=== PATIENT | female | born 1945 | race Caucasian/White ===

== ENCOUNTER → 2021-02-16 | Outpatient (CLI) | payer SELFPAY ==
[2020-07-24 11:10] VITALS: BMI 27.5
[2021-02-16 10:06] LABS: International Normalized Ratio 1.7; Prothrombin Time (Protime)PT. 19.6 SECONDS (11.7-14.9)
== END | disposition home or self-care (01) ==
LOC: LABSPEC 09:48
PROVIDERS: PCP Student in an Organized Health Care Education/Training Program; Referring Provider Student in an Organized Health Care Education/Training Program; Visit Provider Student in an Organized Health Care Education/Training Program
DX: I48.20 Chronic atrial fibrillation, unspecified (principal)
CPT/HCPCS: 85610

== ENCOUNTER 2023-05-22 11:00 | Outpatient (RCR) | payer MEDICARE, MEDICAID, SELFPAY ==
--- NOTE | 2023-01-17 11:56 | HP.PTREVAL ---
Dr. Ross Burns, DO, It has been my pleasure to treat FERN RODRIGUEZ over the last 11 visits for Bilateral Hip and Back Pains. Please see the progress note below for an update on the physical therapy plan of care! Subjective: Patient loves the pool- she feels that she is getting stronger- she is improving on land with her strength, mobility, balance. She is now using a cane most of the time now. No falls- couple stumbles but was able to catch herself. Her movement at home is much better she is not sitting as much and she more comfortable while she is sitting- she has working on stretching herself out- she got herself flat on the chiropractic table and he was able to do some different adjustments that he couldn't do before. Her pain has also decreased now its more soreness not pain. Objective/Function: Posture: improved- able to be upright with straight cane. Gait: straight cane- 150 feet- slightly wide ANA LILIA. Transfers: supine to sit indep- can lay flat without assistance- sit to stand requires bilateral UE and min A for single UE. ROM: WFL. Strength: Core: fair, Hip: Left: 4/5, Right: 4+/5, Knee: 4+/5, Ankle: 4+/5. Flex: HS: severe, Gastroc: severe Plan Plan: 01/17/23: Cont 3x a week for 4 weeks in the pool as pt is making great progress. *follow up with response to this visit. 12/24/22: Transition to pool for 2x a week for 4 weeks- LE and UE strength with core stabilization- functional mobility Balance/Gait/Functional tests - Balance/Special Test Scores Lower Extremity Functional Score: 12 Tug Test: <20 sec.=mostly independent Goals Goal 1:: Patient will be I with HEP and progression Goal Time Frame: 4-6 Weeks Goal Progress: Progressing Goal 2:: Patient will ambulate >300 feet with cane or no AD Goal Time Frame: 4-6 Weeks Goal Progress: Progressing Goal 3:: Patient will demo ability to transfer from supine to sit and sit to supine without A Goal Time Frame: 4-6 Weeks Goal Progress: Goal Met Goal 4:: Patient will report 80% improvement Goal Time Frame: 4-6 Weeks Goal Progress: Progressing Anticipated Interventions Patient/Client Instruction: Educate patient on: Benefits of Fitness Program Therapeutic Exercise to Include: Strength training, Endurance training, Balance training, Coordination, Agility training, Body mechanics, Postural training, Flexibilty training, Gait and locomotor training, In an aquatic setting, Dynamic Lumbar Stabilization, Scapular Strength/Stabilization For the Purpose of:: To improve muscle performance and motor function TENS: Yes Cryotherapy (ice pack, ice massage): Yes Thermo therapy (hot pack): Yes Please do not hesitate to contact me at [phone] by phone or if you have questions or concerns regarding this new plan of care! Sincerely, Maame Pagan DPT
--- NOTE | 2023-02-14 13:38 | HP.PTREVAL ---
Dr. Ross Burns, DO, It has been my pleasure to treat FERN RODRIGUEZ over the last 22 visits for Bilateral Hip and Back Pains. Please see the progress note below for an update on the physical therapy plan of care! Subjective: Doing better. Making progress. I can do things i could not do before like sitting better an progressed to cane instead of walker. No falls and feels OK with balance with cane. Tires out easily, endurance is still limited. Does her laundry and dishes. Hobbies include video games. No pain anymore, some discomfort at times. Objective/Function: Walking with very poor confidence today and hesitant but able with without AD. Walks with cane safe adn I. Steps with two rails reciprocally hesitantly but able strength purdy, [id number] FW weight shift. Pt is [id number] to get in pool as is dtr but admittedly they could do pool ex on their own and she will likely benefit more from gait training and strengthening on land for confidence. New POC adn fair prognosis with compliance Plan Plan: 2x/week for gait /balance training, work on walking without AD, challenge weight shift, steps, LE strength to HEP and ensure patient [id number] in pool with dtr in community. Balance/Gait/Functional tests - Balance/Special Test Scores Functional Gait Assessment Score: 18 % Disability: 40.0000 Lower Extremity Functional Score: 33 Tug Test: <20 sec.=mostly independent Goals Goal 1:: Patient will be I with HEP and progression Goal Time Frame: 4-6 Weeks Goal Progress: pool met Goal 2:: Patient will ambulate >300 feet with cane or no AD Goal Time Frame: 4-6 Weeks Goal Progress: cane met Goal 3:: Patient will demo ability to transfer from supine to sit and sit to supine without A Goal Time Frame: 4-6 Weeks Goal Progress: Goal Met Goal 4:: Patient will report 80% improvement Goal Time Frame: 4-6 Weeks Goal Progress: 60% Goal 5:: Walk without AD and climb steps confidently 30 feet I on firm flat surface Goal Time Frame: 4-6 Weeks Goal Progress: NEW GOAL Goal 6:: FGA score Goal Time Frame: 4-6 Weeks Goal Progress: NEW GOAL Anticipated Interventions Patient/Client Instruction: Educate patient on: Benefits of Fitness Program Therapeutic Exercise to Include: Strength training, Endurance training, Balance training, Coordination, Agility training, Body mechanics, Postural training, Flexibilty training, Gait and locomotor training, In an aquatic setting, Dynamic Lumbar Stabilization, Scapular Strength/Stabilization For the Purpose of:: To improve muscle performance and motor function TENS: Yes Cryotherapy (ice pack, ice massage): Yes Thermo therapy (hot pack): Yes Please do not hesitate to contact me at [phone] by phone or if you have questions or concerns regarding this new plan of care! Sincerely, Moy Omalley, DPT, OCS, CSCS
--- NOTE | 2023-03-25 11:45 | HP.PTREVAL ---
Dr. Ross Burns, DO, It has been my pleasure to treat FERN RODRIGUEZ over the last 31 visits for Bilateral Hip and Back Pains. Please see the progress note below for an update on the physical therapy plan of care! Subjective: adhesion in L hip broken up by chiropractor yesterday adn is sore. Overall has not been in the water but is still improving with her exercises. Sleeping better. Soreness in hip is 5/10 vs 9/10 prior. Pain much better. HEP: LAQ, standing moving hip at counter, sit to stand and stretching front of hip on side of bed. Objective/Function: Moving L hip and walking much easier without antalgia today, up and down steps reciprocally easily and without pain. FGA is +4 and improving. Avoids FW weight shift exitting chair until cued adn then is very tight anterior hips limiting FW flexion. Plan Plan: 2x/week x 4 weeks for. 1. Please get on final HEp for posture and LE strength including FW weight shift in chair, balance, sink exercises with pics, This is the main goal. 2. Wrok on Fw weight shift to get chest over feet in exitting chair. 3. Wrok on lots of gait with challenges to help confidence with balance. Work to d/c in 4 weeks to final HEP. not realistic for patinet to get in pool assisted. New goals set in #2 below and fair prognosis with complince. Balance/Gait/Functional tests - Balance/Special Test Scores Functional Gait Assessment Score: 22 % Disability: 26.6700 Lower Extremity Functional Score: 21 Tug Test: <20 sec.=mostly independent Goals Goal 1:: Patient will be I with HEP and progression Goal Time Frame: 4-6 Weeks Goal Progress: workin g on land HEP Goal 2:: FGA. out of chair Fw weight shifting appropriately. I aggressive home strength adn balance ex with pics. Goal Time Frame: 4-6 Weeks Goal Progress: NEW GOAL Goal 3:: Patient will demo ability to transfer from supine to sit and sit to supine without A Goal Time Frame: 4-6 Weeks Goal Progress: Goal Met Goal 4:: Patient will report 80% improvement Goal Time Frame: 4-6 Weeks Goal Progress: 60% Goal 5:: Walk without AD and climb steps confidently 30 feet I on firm flat surface Goal Time Frame: 4-6 Weeks Goal Progress: Progressing Goal 6:: FGA score Goal Time Frame: 4-6 Weeks Goal Progress: Goal Met Anticipated Interventions Patient/Client Instruction: Educate patient on: Benefits of Fitness Program Therapeutic Exercise to Include: Strength training, Endurance training, Balance training, Coordination, Agility training, Body mechanics, Postural training, Flexibilty training, Gait and locomotor training, In an aquatic setting, Dynamic Lumbar Stabilization, Scapular Strength/Stabilization For the Purpose of:: To improve muscle performance and motor function TENS: Yes Cryotherapy (ice pack, ice massage): Yes Thermo therapy (hot pack): Yes Please do not hesitate to contact me at [phone] by phone or if you have questions or concerns regarding this new plan of care! Sincerely, Moy Omalley, DPT, OCS, CSCS
--- NOTE | 2023-04-24 12:34 | HP.PTREVAL ---
Re-Evaluation Intro: Dr. Ross Burns, DO, It has been my pleasure to treat FERN RODRIGUEZ over the last 37 visits for Bilateral Hip and Back Pains. Please see the progress note below for an update on the physical therapy plan of care! Subjective Subjective: Not sure if she is better than a month ago. Vitamins and supplements this morning helped. Pain level is up and down , tummy hurts and may have passed a gall stone. Hip pain is better, tightness persists anterior hips. Says she is stretching at home but not able to do anterior hip stretche son her own. Doing some ex at home regularly. Says she does a little leg movements sometimes of legs. Objective Objective/Function: Walks with cane without antalgia today comfortably, steps reciprocal with one rail up and two down. needs assist to get out of chair without UE and VC to use legs and FW weight shift. FGA is similar to last session , recommended 100% compliance with cane. Plan Plan Plan: Pt to ex on her own in the pool as a member 2-3x/week and HEP on off days of sink exercises. Questionable if she will be compliant based on recent history but will f/u in a month to see of mobility still improved. Balance/Gait/Functional tests Balance/Special Test Scores Functional Gait Assessment Score: 20 % Disability: 33.3400 Lower Extremity Functional Score: 24 Tug Test: <20 sec.=mostly independent Goals Goals Goal 1:: Patient will be I with HEP and progression Goal Time Frame: 4-6 Weeks Goal Progress: noncompliant. Goal 2:: FGA out of chair Fw weight shifting appropriately I aggressive home strength adn balance ex with pics. Goal Time Frame: 4-6 Weeks Goal Progress: Not Progressing Goal 3:: Consistent pool ex community 3x/week to maintain improvements in mobility incuding FGA, steps reciprocal with one rail and 60% overall mobility improvement subjectively Goal Time Frame: 2-4 Weeks Goal Progress: NEW GOAL Goal 4:: Patient will report 80% improvement Goal Time Frame: 4-6 Weeks Goal Progress: 50% Goal 5:: Walk without AD and climb steps confidently 30 feet I on firm flat surface Goal Time Frame: 4-6 Weeks Goal Progress: Not Progressing Goal 6:: FGA score Goal Time Frame: 4-6 Weeks Goal Progress: Goal Met Anticipated Interventions Anticipated Interventions Patient/Client Instruction: Educate patient on: Benefits of Fitness Program Therapeutic Exercise to Include: Strength training, Endurance training, Balance training, Coordination, Agility training, Body mechanics, Postural training, Flexibilty training, Gait and locomotor training, In an aquatic setting, Dynamic Lumbar Stabilization and Scapular Strength/Stabilization For the Purpose of:: To improve muscle performance and motor function TENS: Yes Cryotherapy (ice pack, ice massage): Yes Thermo therapy (hot pack): Yes Re-Evaluation Ending Re-evaluation ending: Please do not hesitate to contact me at [phone] by phone or if you have questions or concerns regarding this new plan of care! Sincerely, Moy Omalley, KENAT, OCS, CSCS
--- NOTE | 2023-05-22 11:44 | HP.PTDCSUM ---
Discharge Summary D/C summary: It has been my pleasure to treat FERN RODRIGUEZ referred by Dr. Ross Burns DO, with the diagnosis of Bilateral Hip and Back Pains for a total of 38 visit(s). Discharge Date: Please see the following information for a summary of their discharge status. Subjective Subjective: She is going to the pool at least 2x a week and she is doing great- and she is walking using the cane all the time. She has had no falls, trips or stumbles. She is fully I with all dressing, driving and bathing. She has no questions or concerns with her exercises. She is sleeping in her bed and is able to get fully flat. She feels that she is 70% better- she wants to be able to walk without a cane. She has a little belly pain today not sure if diet or muscle soreness (10). Pain Back: Pain Intensity (Out of 10): 0 Legs: Pain Intensity (Out of 10): 0 Overall Improvement % Improvement: 70 Objective Objective/Function: Posture: good throughout session Gait: single point cane- upright posture no deviation or loss of balance Strength: 4+/5 throughout LE HR/TR: able with UE A FGA is similar to last session , recommended 100% compliance with cane. Goals Goal 1:: Patient will be I with HEP and progression Goal Progress: noncompliant. Goal 2:: FGA out of chair Fw weight shifting appropriately I aggressive home strength adn balance ex with pics. Goal Progress: Not Progressing Goal 3:: Consistent pool ex community 3x/week to maintain improvements in mobility incuding FGA, steps reciprocal with one rail and 60% overall mobility improvement subjectively Goal Progress: NEW GOAL Goal 4:: Patient will report 80% improvement Goal Progress: 50% Goal 5:: Walk without AD and climb steps confidently 30 feet I on firm flat surface Goal Progress: Not Progressing Goal 6:: FGA score Goal Progress: Goal Met Plan Plan: 05/22/23: Appropriate for d/c- continues to excel in the pool with HEP Pt to ex on her own in the pool as a member 2-3x/week and HEP on off days of sink exercises. Questionable if she will be compliant based on recent history but will f/u in a month to see of mobility still improved. D/C Information d/c sentence: If there are questions or concerns regarding this patient's physical therapy, please feel free to call me at [phone]. Thank you for the referral of this patient. Sincerely, Maame Pagan, DPT Balance/Gait/Functional tests Balance/Special Test Scores Functional Gait Assessment Score: 20 % Disability: 33.3400 Lower Extremity Functional Score: 24 Tug Test: <20 sec.=mostly independent
== END 2023-05-22 13:14 | disposition home or self-care (01) ==
LOC: PT 11:00
PROVIDERS: PCP Student in an Organized Health Care Education/Training Program; Referring Provider Student in an Organized Health Care Education/Training Program; Visit Provider Student in an Organized Health Care Education/Training Program
DX: M25.551 Pain in right hip (principal); M25.552 Pain in left hip; M79.10 Myalgia, unspecified site; M54.50 Low back pain, unspecified; G89.29 Other chronic pain
CPT/HCPCS: 97110; 97113; 97163; 97164; 97530

== ENCOUNTER 2024-03-17 18:59 | Emergency (ER) | payer MEDICARE, MEDICAID, SELFPAY ==
[2024-03-17 19:00] VITALS: BP 145/79; PULSE 87; RESP 18; TEMP 36.7; O2SAT 99
--- NOTE | 2024-03-17 19:18 | CT_ITS ---
INDICATION: left neck swelling/mass EXAMINATION: CT NECK WITH CONTRAST - CT Soft Tissue Neck W/ Contrast Injection TECHNIQUE: Helically acquired images were obtained of the neck following IV contrast. The protocol utilizes one or more of the following dose reduction techniques: automated exposure control, adjustment of mA and/or kV according to patient size,and/or use of iterative reconstruction technique. IV Contrast dosage and agent: [The urinary RADIATION DOSAGE (If Supplied By Facility): CTDIvol = ( 14.17 ) mGy, DLP = ( 920.05 ) mGycm COMPARISON: FINDINGS: Aortic arch atherosclerosis without dissection or ectasia on limited study [id number]. Pericardial recess fluid noted. Dilatation of the distal left brachiocephalic vein noted just prior to the SVC junction. Mild cervical carotid bifurcation and cavernous carotid atherosclerosis. No evidence of cervical vascular occlusion or focal flow-limiting stenosis. Left parotid gland enlargement and diffuse inferior hyperenhancement without ductal ectasia or discrete mass. Slight relative thickening of the left platysma.. Reactive left cervical level 2A lymph nodes without suspicious morphology or necrosis. Submandibular glands are normal in appearance. Right parotid gland is normal in appearance. The pharyngeal tonsils are symmetric and normal in appearance. Parapharyngeal fat is preserved. No abnormal enhancing base of tongue mass is appreciated. Beam hardening artifact from dental hardware degrades visualization of the floor of the mouth. Normal epiglottis. No prevertebral soft tissue thickening. Subcentimeter anterior thyroid nodules are suggested, likely benign given small size, no specific imaging follow-up required. Scattered mild paranasal sinus mucoperiosteal thickening. Mastoid air cells are clear. Unremarkable orbits. Multiple small right maxillary alveolar root odontogenic abscesses without overlying soft tissue inflammation. CT/Soft Tissue Neck WITH Contrast IMPRESSION: Focal inflammation in the left inferior parotid gland most consistent with parotitis. CT follow-up recommended after treatment to ensure resolution. Mild reactive left cervical adenopathy. Electronically Signed: Troy Richardson MD at 22:38 EDT ,
--- NOTE | 2024-03-17 19:19 | EX.ED.DYSGE1 ---
HPI History of Present Illness Chief Complaint: Other, Pain/Inj Detail of Chief Complaint: Left neck swelling Informant: patient Narrative Narrative: Patient presents with left-sided neck swelling that started 3 days ago. Patient on hospice for history of CHF. Hospice called in an antibiotic amoxicillin yesterday which she started taking. She denies fever. She has had some chills and some sweats. She chronically has dental pain but no more than usual. She and her daughter were concerned that this might be an abscess. Patient has history of A-fib but currently not on anticoagulation. [facility] Medical History (Updated 03/17/24 @ 23:[address] Elliott Brown, DO) History of cardioversion Mitral regurgitation Hyperlipidemia Esophagitis Panic disorder Palpitations Acute combined systolic and diastolic congestive heart failure Chronic atrial fibrillation Home Medications ?Medication ?Instructions ?Recorded ?Last Taken ?Type Atenolol 12.5 mg PO DAILY 07/10/16 07/09/16 History warfarin 3 mg tablet (Jantoven) 3 mg PO DAILY 07/10/16 07/09/16 23:00 History magnesium oxide 400 mg (241.3 mg 400 mg PO DAILY ##30 07/11/16 Unknown Rx magnesium) tablet meclizine 25 mg tablet 25 mg PO TID PRN PRN Vertigo ##10 07/11/16 Unknown Rx nicotine 21 mg/24 hr daily 21 mg TRANSDERM. DAILY PRN 07/11/16 Unknown Rx transdermal patch Nicotine Craving ##28 amoxicillin 400 mg-potassium 10 ml PO BID 10 days #200 mL 03/17/24 Unknown Rx clavulanate 57 mg/5 mL oral suspension Allergy/AdvReac Type Severity Reaction Status Date / Time paroxetine (From Paxil) Allergy hallucinati Verified 03/17/24 19:02 ons diltiazem AdvReac Swelling Verified 03/17/24 19:02 Family History (Updated 12/30/23 @ 08:58 by Brenda Romero RN) Mother Thyroid disorder Seizures Father CAD (coronary artery disease) Myocardial infarction Brother CAD (coronary artery disease) Myocardial infarction Sister CAD (coronary artery disease) Myocardial infarction Surgical History (Updated 12/30/23 @ 08:55 by Brenda Romero RN) History of colonoscopy Social History Smoking Status: Heavy Smoker (>10/day) ROS ROS ED Review of Systems ROS Unobtainable: other Constitutional Constitutional ED: Reports lethargy; Denies chills, fever(s), sweats or weight loss Eyes Eyes: Denies blurry vision, change in vision or diplopia ENT ENT ED: Reports other Details: Left neck swelling ; Denies rhinorrhea or sore throat Cardiovascular Cardiovascular: Denies chest pain, orthopnea or racing heartbeat Respiratory/Chest Respiratory/Chest: Denies cough, dyspnea, dyspnea on exertion, orthopnea or sputum Gastrointestinal Gastrointestinal: Denies abdominal pain, diarrhea, nausea or vomiting Genitourinary Genitourinary ED: Denies dysuria, hematuria or urinary frequency Musculoskeletal Musculoskeletal: Denies arthralgias, back pain, myalgias or neck pain Integumentary Denies abscess, Abrasions or rash Neurologic Neurologic: Denies headache(s) or weakness Psychiatric Psychiatric: Denies anxiety, depression or suicidal thoughts Endocrine Endocrinology: Denies polydipsia, polyphagia or polyuria Hematologic/Lymphatic Hematologic/Lymphatic: Denies easy bleeding, easy bruising or lymphadenopathy Allergic/Immunologic Allergic/Immunologic ED: Denies mouth swelling, tongue swelling or urticaria EXAM Physical Exam Const Vital Signs: 03/17/24 19:00 03/17/24 19:49 03/17/24 21:00 Temperature 98.1 F Temperature Source Temporal Pulse Rate 87 78 Respiratory Rate 18 18 Respiratory Pattern Normal Blood Pressure 145/79 H 161/86 H Blood Pressure Mean 101 111 Pulse Ox 99 95 Oxygen Delivery Method Room Air Room Air Positive well nourished and well developed General Appearance ED: well developed and NAD HEENT Reports TM's clear and moist mucous membranes HEENT Narrative: Left-sided neck-just inferior and posterior to the mandible is a soft tissue swelling measuring approximately 5 x 3 cm. Tender to palpation. No cellulitic changes noted. normocephalic and atraumatic; Negative for trauma or tenderness Tympanic Membrane ED: Yes TM's clear Eyes PERRL and EOMs intact bilaterally General Eye ED: Negative for pale conjunctiva or scleral icterus Neck no lymphadenopathy, supple and no JVD General: Negative for tenderness Chest Wall inspection of chest normal and palpation of chest normal Chest: Negative for tenderness Resp normal respiratory effort and clear to auscultation bilaterally Effort and Inspection: Negative for respiratory distress or pain with movement Auscultation: Negative for rhonchi, wheezes or diminished lung sounds Cardio regular rate, regular rhythm, S1 normal heart sound, S2 normal heart sound and no murmurs Peripheral Pulses: pulses 2+ throughout GI normal to inspection, nondistended, normoactive bowel sounds, soft to palpation, non-tender, non-distended and no masses Back/Spine no CVA tenderness and no thoracic nor lumbar tenderness Extremity normal to inspection General Extremety ED: Negative for edema General Extremity: Negative for edema Neuro oriented x3, CN's II-XII intact bilaterally, no sensory deficits noted and gait normal Sensorium / Orientation: awake, alert, oriented to person, oriented to place and oriented to time Motor Exam: strength 5/5 throughout and strength abnormal Psych mental status grossly normal Skin no rashes or lesions noted and no wounds MDM MDM MDM Narrative Medical decision making narrative: Patient with a painful swelling over the left lateral neck which I suspect is likely parotitis. IV line established. CBC with differential count of 7.0 with hemoglobin 13 and platelet count of 285. Chemistries unremarkable. CT scan showed parotitis without evidence of abscess. Discussed case with ENT Dr. Benito Reno who recommended switching patient to Augmentin or clindamycin. Patient would prefer to go with the Augmentin and she needs suspension because she has trouble swallowing pills. Clinically she looks well. Advised to follow-up with ENT within the next 3 to 5 days. Lab Data Attestation: I reviewed the patient's lab results. Labs: Laboratory Results - last 24 hr 03/17/24 19:33 WBC 7.0 RBC 4.41 Hgb 13.2 Hct 41.4 MCV 93.9 MCH 29.9 MCHC 31.9 L RDW Std Deviation 44.3 H RDW Coeff of Amador 12.9 Plt Count 285 MPV 9.2 Immature Gran % (Auto) 0.300 Neut % (Auto) 55.4 Lymph % (Auto) 34.2 [place] % (Auto) 7.7 Eos % (Auto) 1.3 Baso % (Auto) 1.1 H Absolute Neuts (auto) 3.9 Absolute Lymphs (auto) 2.40 Nucleated RBC % 0 Sodium 138 Potassium 3.3 L Chloride 105 Carbon Dioxide 28.0 Anion Gap 5 BUN 16 Creatinine 0.95 Estim Creat Clear Calc 56.74 Est GFR (MDRD) Af Amer 73 Est GFR (MDRD) Non-Af 61 BUN/Creatinine Ratio 16.8 Glucose 92 Calcium 9.0 Radiography Diagnostic Testing: Clinical Impression(s) from Imaging Studies Soft Tissue Neck CT 03/17/24 19:18 IMPRESSION: Focal inflammation in the left inferior parotid gland most consistent with parotitis. CT follow-up recommended after treatment to ensure resolution. Mild reactive left cervical adenopathy. Electronically Signed: Troy Richardson MD at 22:38 EDT , Discharge Plan Triage Chief Complaint: Other, Pain/Inj ED Provider: Elliott Brown Dx/Rx/DC Orders Clinical Impression: Acute parotitis Instructions: ED Salivary Gland Infection Prescriptions: New amoxicillin-pot clavulanate 400-57 mg/5 mL suspension for reconstitution 10 ml PO BID 10 Days Qty: 200 0RF No Action Atenolol 12.5 mg PO DAILY Patient Comments: Blood pressure Heart rate control warfarin [Jantoven] 3 MG tablet 3 mg PO DAILY Patient Comments: Blood thinner meclizine 25 MG tablet 25 mg PO TID PRN PRN (Reason: Vertigo) Qty: 10 0RF Patient Comments: dizziness Rx Instructions: 1/2 - 1 tab every 6 hours as needed for vertigo nicotine 21 MG patch 21 mg TRANSDERM. DAILY PRN (Reason: Nicotine Craving) Qty: 28 0RF Patient Comments: to stop smoking magnesium oxide 400 MG tablet 400 mg PO DAILY Qty: 30 0RF Patient Comments: supplement Primary Care Provider: Ross Burns Referrals: Ross Burns DO [Primary Care Provider] - Benito Reno MD [Med Staff - Active Staff] - 3-5 Days Print Language: Mauritian Disposition Disposition: Home, Self Care
[2024-03-17 19:43] LABS: Absolute Neutrophil Count 3.9 X10^3/uL (2.0-7.7); Basophil# 0.08 X10^3/uL; Basophil% 1.1 % (0-1); Eosinophil# 0.09 X10^3/uL; Eosinophils% 1.3 % (0-5); Hematocrit 41.4 % (37-47); Hemoglobin 13.2 g/dL (12.0-15.0); Lymphocyte % 34.2 % (19-41); Mean Corp Hgb Conc 31.9 g/dL (32-36); Mean Corpuscular Hgb 29.9 pg (27.0-32.0); Mean Corpuscular Volume 93.9 fL (81-99); Mean Platelet Vol. 9.2 fl (6.2-12.0); Monocyte# 0.54 X10^3/uL; Monocyte% 7.7 % (0-10); NRBC Flagged by Analyzer 0 % (0-5); Neutrophil # 3.89 X10^3/uL (2.7-7.7); Neutrophil % 55.4 % (47-70); Platelet Count 285 K/mm3 (150-450); RBC Distribution Width CV 12.9 % (11.6-14.6); RBC Distribution Width SD 44.3 fl (35.1-43.9); Red Blood Count 4.41 M/mm3 (4.2-5.4)
[2024-03-17 19:48] VITALS: BMI 26.6
[2024-03-17 20:09] LABS: Anion Gap 5 (5-15); BUN 16 mg/dL (7-18); BUN/Creat Ratio 16.8 RATIO (10-20); Chloride 105 mmol/L (98-107); Creatinine, Serum 0.95 mg/dL (0.55-1.02); EST Glomerular Filtration Rate 61 mL/min (>60); Est Glom Filt Rate - Afr Amer 73 mL/min (>60); Estimated Creatinine Clearance 56.74 ml/min; Glucose 92 mg/dL (74-106); Potassium 3.3 mmol/L (3.5-5.1); Sodium Level 138 mmol/L (136-145)
[2024-03-17 21:00] VITALS: BP 161/86; PULSE 78; RESP 18; O2SAT 95
[2024-03-17] MEDS: Amox/Clav 400mg/5ml Susp 800 MG PO (23:30)
[2024-03-17 23:36] VITALS: BP 161/86; PULSE 78; RESP 18; TEMP 36.4; O2SAT 95
== END 2024-03-17 23:43 | disposition home or self-care (01) ==
PROVIDERS: Emergency Provider Emergency Medicine; PCP Student in an Organized Health Care Education/Training Program; Visit Provider Emergency Medicine
DX: K11.21 Acute sialoadenitis (principal); I50.41 Acute combined systolic (congestive) and diastolic (congestive) heart failure; I48.20 Chronic atrial fibrillation, unspecified; F17.200 Nicotine dependence, unspecified, uncomplicated; Z51.5 Encounter for palliative care; K08.89 Other specified disorders of teeth and supporting structures; E78.5 Hyperlipidemia, unspecified
CPT/HCPCS: 70491; 80048; 85025; 99283; Q9967; A4216

== ENCOUNTER 2025-01-15 02:40 | Emergency (ER) | payer MEDICARE, MEDICAID, SELFPAY ==
[2025-01-15 02:41] VITALS: BP 164/77; PULSE 65; TEMP 36.8; O2SAT 93; BMI 31.6
[2025-01-15 02:45] VITALS: BP 157/82; PULSE 100; RESP 22; TEMP 36.8; O2SAT 90
--- NOTE | 2025-01-15 03:07 | CT_ITS ---
EXAM: ABDOMEN/PELVIS W IV CONT ONLY 01/15/2025 CLINICAL HISTORY: Right upper quadrant pain COMPARISON: None available TECHNIQUE: CT of the abdomen and pelvis with contrast with coronal and sagittal reformatted images. 99 cc Isovue 370 contrast intravenous FINDINGS: Mild dependent right base atelectasis. A few small hepatic cysts. The liver, adrenal glands, kidneys, pancreas and spleen appear within limits. Two partially calcified gallstones measuring up to 1.7 cm within nondistended, noninflamed appearing gallbladder. No pericholecystic free fluid. CBD appears within limits. No evidence of intrahepatic biliary ductal dilation. Aortoiliac atherosclerotic calcifications without abdominal aortic aneurysm. No adenopathy. Gaseous prominence of the proximal colon without volvulus, wall thickening or pericolonic inflammatory change. No bowel dilation or free air. Normal caliber appendix without secondary signs. A few noninflamed colonic diverticula. The bladder and adnexa appear within limits. Suggestion of a left partially pedunculated fundal uterine fibroid axial 88 and sagittal 93. No free fluid. Severe left and [id number] right hip osteoarthrosis. Lower lumbar spondylosis/discogenic change. CT/Abdomen/Pelvis W IV Cont ONLY IMPRESSION: Cholelithiasis without evidence of cholecystitis. Gaseous prominence of the proximal colon without volvulus, wall thickening or p ericolonic inflammatory change. No bowel dilation or free air. Normal caliber appendix without secondary signs. Severe hip osteoarthrosis as above. Reading Location: [id number]
[2025-01-15 03:24] LABS: Absolute Lymphocyte Count 1.12 X10^3/uL (0.83-4.51); Absolute Neutrophil Count 10.6 X10^3/uL (2.0-7.7); Basophil# 0.05 X10^3/uL; Basophil% 0.4 % (0-1); Eosinophil# 0.05 X10^3/uL; Eosinophils% 0.4 % (0-5); Hemoglobin 12.1 g/dL (12.0-15.0); Lymphocyte # 1.12 X10^3/ul (0.83-4.51); Lymphocyte % 8.8 % (19-41); Mean Corp Hgb Conc 34.6 g/dL (32-36); Mean Corpuscular Hgb 31.5 pg (27.0-32.0); Mean Corpuscular Volume 91.1 fL (81-99); Mean Platelet Vol. 9.5 fl (6.2-12.0); Monocyte# 0.89 X10^3/uL; NRBC Flagged by Analyzer 0 % (0-5); Neutrophil # 10.57 X10^3/uL (2.7-7.7); Platelet Count 302 K/mm3 (150-450); RBC Distribution Width CV 12.9 % (11.6-14.6); RBC Distribution Width SD 42.5 fl (35.1-43.9); Red Blood Count 3.84 M/mm3 (4.2-5.4); White Blood Count 12.7 K/mm3 (4.4-11.0)
[2025-01-15] MEDS: 0.9% Normal Saline (1000mL) 1,000 ML 999 ML IV (03:25)
[2025-01-15] MEDS: Ondansetron 4 MG/2 ML Vial IV (03:25)
--- NOTE | 2025-01-15 03:35 | EX.ED.DYSGE1 ---
HPI History of Present Illness Chief Complaint: Abd Pain Narrative Narrative: Patient is a 79-year-old female with a past medical history of atrial fibrillation, CHF, regurgitation, hyperlipidemia who presents to the emergency department chief complaint of abdominal pain rating to her back. States that she was woken up out of his sleep with this pain she states that it felt like something was stabbing her and they are concerned that if this was her gallstones therefore they came here for further evaluation management. Patient states that her pain was a 10 out of 10 however now it is a 5 out of 10. PFSH COUNT INCLUDES THE [facility] Medical History History of cardioversion Mitral regurgitation Hyperlipidemia Esophagitis Panic disorder Palpitations Acute combined systolic and diastolic congestive heart failure Chronic atrial fibrillation Home Medications ?Medication ?Instructions ?Recorded ?Last Taken ?Type magnesium oxide 400 mg (241.3 mg 400 mg PO DAILY ##30 07/11/16 Unknown Rx magnesium) tablet furosemide 20 mg tablet (Lasix) 20 mg PO DAILY 01/15/25 Unknown History Allergy/AdvReac Type Severity Reaction Status Date / Time paroxetine (From Paxil) Allergy hallucinati Verified 01/15/25 02:49 ons diltiazem AdvReac Swelling Verified 01/15/25 02:49 Family History Mother Thyroid disorder Seizures Father CAD (coronary artery disease) Myocardial infarction Brother CAD (coronary artery disease) Myocardial infarction Sister CAD (coronary artery disease) Myocardial infarction Surgical History History of colonoscopy Social History Smoking Status: Heavy Smoker (>10/day) ROS ROS ED ROS Narrative Constitutional: Denies fevers, chills, headaches Eyes: Denies change in vision double vision blurry vision Cardiovascular: Denies chest pain or palpitations Respiratory: Denies cough or wheezing shortness of breath Abdomen: Complains of abdominal pain as noted above denies vomiting or diarrhea : Denies urinary symptoms Neurological: Denies numbness, weakness, tingling Musculoskeletal: Complaint of back pain as noted above Skin: Denies rashes or lesions EXAM Physical Exam Narrative Exam Narrative: General: Patient is lying in bed rest comfortably did not appear to be in acute distress Head: Atraumatic, normocephalic Eyes: PERRL bilaterally, EOMI bilaterally, no conjunctival injection noted Neck: Soft, supple, trachea midline Cardiovascular: Regular rate and rhythm no murmurs gallops rubs noted Respiratory: Clear to auscultation bilaterally Abdomen: Soft, nondistended, tender to palpation in the right upper quadrant no rebound or guarding on exam Extremities: +4/5 strength noted in the bilateral upper and lower extremity, radial pulses +2/4 in the bilateral per extremities Neurological: Patient following commands and that she was at [facility] year is 2024 Skin: Warm, dry, intact no rashes or lesions noted Const Vital Signs: 01/15/25 02:41 01/15/25 02:45 01/15/25 03:45 Temperature 98.3 F 98.3 F 98 F Temperature Source Oral Oral Oral Pulse Rate 65 100 66 Respiratory Rate 22 H 20 H Blood Pressure 164/77 H 157/82 H 136/66 H Blood Pressure Mean 106 107 89 Pulse Ox 93 90 97 Oxygen Delivery Method Room Air Room Air Room Air 01/15/25 04:00 Temperature 98 F Temperature Source Oral Pulse Rate 70 Respiratory Rate 21 H Blood Pressure 142/66 H Blood Pressure Mean 91 Pulse Ox 93 Oxygen Delivery Method Room Air MDM MDM MDM Narrative Medical decision making narrative: Patient is a 79-year-old female who presented to the emergency department the chief complaint of abdominal pain waking her from sleep. On the differential diagnose includes but not limited to cholecystitis, AAA, bowel obstruction, diverticulitis. Once workup is obtained reviewed she will be reevaluated. Patient be given IV fluids morphine and Zofran. Nursing notified me that the patient refused the morphine. Patient CBC reviewed and showed leukocytosis 12,000, hemoglobin 12.1, plate count noted to be 302. Patient sodium 134, potassium 3.3, creatinine normal at 0.85. Patient AST and ALT normal at 21 and 12 respectively lipase normal at 30. Patient CT abdomen pelvis IV contrast reviewed showed cholelithiasis without evidence of acute cholecystitis. Gaseous prominence of the proximal colon without volvulus, wall thickening and pericolonic inflammatory change. No bowel dilation or free air. Normal caliber appendix without secondary signs severe hip osteoarthrosis. Reevaluation she is feeling better she would like to go home this point time. Patient advised to return with worsening symptoms or concerns. She is vies follow-up department care physician outpatient setting. All question concerns answered she was discharged home in stable condition. She is on hospice currently mainly for CHF per family at bedside Lab Data Labs: Laboratory Results - last 24 hr 01/15/25 02:49 WBC 12.7 H RBC 3.84 L Hgb 12.1 Hct 35.0 L MCV 91.1 MCH 31.5 MCHC 34.6 RDW Std Deviation 42.5 RDW Coeff of Amador 12.9 Plt Count 302 MPV 9.5 Immature Gran % (Auto) 0.400 Neut % (Auto) 83.0 H Lymph % (Auto) 8.8 L [place] % (Auto) 7.0 Eos % (Auto) 0.4 Baso % (Auto) 0.4 Absolute Neuts (auto) 10.6 H Absolute Lymphs (auto) 1.12 Nucleated RBC % 0 Sodium 134 Potassium 3.3 Chloride 98 Carbon Dioxide 22.1 Anion Gap 13 BUN 14 Creatinine 0.85 Estim Creat Clear Calc 67.61 Est GFR (MDRD) Non-Af 70 BUN/Creatinine Ratio 16.5 Glucose 130 H Calcium 8.6 Total Bilirubin 0.89 AST 21 ALT 12 Alkaline Phosphatase 84 Total Protein 7.6 Albumin 3.5 Globulin 4.1 Albumin/Globulin Ratio 0.8 L Lipase 30 Radiography Diagnostic Testing: Clinical Impression(s) from Imaging Studies Abdomen/Pelvis CT 01/15/25 03:07 IMPRESSION: Cholelithiasis without evidence of cholecystitis. Gaseous prominence of the proximal colon without volvulus, wall thickening or pericolonic inflammatory change. No bowel dilation or free air. Normal caliber appendix without secondary signs. Severe hip osteoarthrosis as above. Reading Location: [facility] Discharge Plan Triage Chief Complaint: Abd Pain ED Provider: Jc Ruiz Dx/Rx/DC Orders Clinical Impression: Abdominal pain Prescriptions: No Action magnesium oxide 400 MG tablet 400 mg PO DAILY Qty: 30 0RF Patient Comments: supplement furosemide [Lasix] 20 mg tablet 20 mg PO DAILY Primary Care Provider: Ross Burns Referrals: Ross Burns DO [Primary Care Provider] - Activity Restrictions/Additional Instructions: Follow-up with your doctor in outpatient setting. Return with worsening symptoms or concerns. Your CT scan did not show anything surgical going on right now. Print Language: Luxembourger Disposition Disposition: Home, Self Care
[2025-01-15 03:45] VITALS: BP 136/66; PULSE 66; RESP 20; TEMP 36.6; O2SAT 97
[2025-01-15 03:45] LABS: Lipase 30 U/L (13-75)
[2025-01-15 04:00] VITALS: BP 142/66; PULSE 70; RESP 21; TEMP 36.6; O2SAT 93
[2025-01-15 04:22] LABS: ALB/GLOB Ratio 0.8 RATIO (0.9-2.4); AST(SGOT) 21 U/L (<=31); Alanine Aminotransfer ALT/SGPT 12 U/L (<=34); Albumin, Serum 3.5 g/dL (3.4-4.8); Alkaline Phosphatase 84 U/L (35-104); Anion Gap 13 (5-15); Calcium,Total 8.6 mg/dL (7.6-11.0); Carbon Dioxide 22.1 mmol/L (21.0-32.0); Chloride 98 mmol/L (98-108); Creatinine, Serum 0.85 mg/dL (0.70-1.20); EST Glomerular Filtration Rate 70 (>60); Estimated Creatinine Clearance 67.61 ml/min (50-250); Globulin 4.1 g/dL (2.2-4.2); Glucose 130 mg/dL (70-99); Potassium 3.3 mmol/L (3.3-5.1); Protein, Total 7.6 g/dL (5.9-8.4); Sodium Level 134 mmol/L (133-145); Total Bilirubin 0.89 mg/dL (0.00-1.30)
[2025-01-15 04:37] LABS: BUN 14 mg/dL (4-19); BUN/Creat Ratio 16.5 RATIO (10-20)
[2025-01-15 04:45] VITALS: BP 125/87; PULSE 78; RESP 18; TEMP 36.6; O2SAT 97
== END 2025-01-15 05:36 | disposition home or self-care (01) ==
PROVIDERS: Emergency Provider Emergency Medicine; PCP Student in an Organized Health Care Education/Training Program; Visit Provider Emergency Medicine
DX: R10.9 Unspecified abdominal pain (principal); I50.9 Heart failure, unspecified; I48.20 Chronic atrial fibrillation, unspecified; K80.20 Calculus of gallbladder without cholecystitis without obstruction; I34.0 Nonrheumatic mitral (valve) insufficiency; E78.5 Hyperlipidemia, unspecified; F17.200 Nicotine dependence, unspecified, uncomplicated; Z79.899 Other long term (current) drug therapy
CPT/HCPCS: 74177; 80053; 83690; 85025; 96361; 96374; 99284; Q9967; A4216; J2405

== ENCOUNTER 2025-02-08 13:52 | Emergency (ER) | payer MEDICARE, MEDICAID, SELFPAY ==
[2025-02-08 13:53] VITALS: BP 120/63; PULSE 106; RESP 18; TEMP 36.6; O2SAT 95; BMI 28.6
[2025-02-08] MEDS: 0.9% Normal Saline (500mL Bag) 500 ML 1000 ML IV (15:50)
[2025-02-08 15:52] VITALS: BP 135/74; PULSE 99; RESP 30; O2SAT 95
--- NOTE | 2025-02-08 15:53 | ED.VIS.GI ---
HPI HPI - GI History of Present Illness Chief Complaint: Diarrhea Informant: patient and family Narrative Narrative: Patient here with daughter for evaluation diarrhea for the last 7 days a least 3 episodes a day. No abdominal pain no fevers. Today noted some blood in the stools. Recent antibiotics multiple rounds initial for UTI event for dental infection. She had dental extraction couple weeks ago she is currently not on antibiotics. Reviewing nursing notes patient is established with hospice. Per daughter for the past year for history of congestive heart failure. She is not on any blood thinners. Daughter has not contacted hospice in the last week however she reports she wants to make sure it is not C. difficile. Patient would not want any upper or lower endoscopies at this time from discussion. [facility] Medical History History of cardioversion Mitral regurgitation Hyperlipidemia Esophagitis Panic disorder Palpitations Acute combined systolic and diastolic congestive heart failure Chronic atrial fibrillation Home Medications ?Medication ?Instructions ?Recorded ?Last Taken ?Type magnesium oxide 400 mg (241.3 mg 400 mg PO DAILY ##30 07/11/16 Unknown Rx magnesium) tablet furosemide 20 mg tablet (Lasix) 20 mg PO DAILY 01/15/25 Unknown History collagenase clostridium histo. 250 topical 02/08/25 Unknown History unit/gram topical ointment (Santyl) Allergy/AdvReac Type Severity Reaction Status Date / Time paroxetine (From Paxil) Allergy hallucinati Verified 02/08/25 13:56 ons diltiazem AdvReac Swelling Verified 02/08/25 13:56 Family History Mother Thyroid disorder Seizures Father CAD (coronary artery disease) Myocardial infarction Brother CAD (coronary artery disease) Myocardial infarction Sister CAD (coronary artery disease) Myocardial infarction Surgical History History of colonoscopy Social History Smoking Status: Heavy Smoker (>10/day) ROS ROS ED Constitutional Constitutional ED: Denies chills, fever(s) or sweats ENT ENT ED: Denies sore throat Cardiovascular Cardiovascular: Denies chest pain, leg edema, palpitations or racing heartbeat Respiratory/Chest Respiratory/Chest: Denies cough, dyspnea or dyspnea on exertion Gastrointestinal Gastrointestinal: Reports diarrhea; Denies abdominal pain, nausea or vomiting Genitourinary Genitourinary ED: Denies dysuria, hematuria or urinary frequency Musculoskeletal Musculoskeletal: Denies back pain, extremity pain or neck pain Integumentary Denies rash or wounds Neurologic Neurologic: Denies headache(s), paresthesias or weakness EXAM Physical Exam Const Vital Signs: 02/08/25 13:53 02/08/25 15:52 02/08/25 16:54 Temperature 97.9 F 98.2 F Temperature Source Oral Pulse Rate 106 H 99 75 Respiratory Rate 18 30 H 12 Blood Pressure 120/63 135/74 H 142/62 H Blood Pressure Mean 82 94 88 Pulse Ox 95 95 100 Oxygen Delivery Method Room Air Room Air Positive well nourished and well developed General Appearance ED: well developed and NAD HEENT HEENT Narrative: Mild dry mucosal membranes. normocephalic and atraumatic Eyes General Eye ED: Yes normal appearance of both eyes Neck full ROM Chest Wall Chest: Negative for tenderness Resp normal respiratory effort and normal air movement Effort and Inspection: symmetric chest movement; Negative for respiratory distress Cardio regular rate, regular rhythm and no murmurs Peripheral Pulses: pulses 2+ throughout GI normal to inspection, nondistended, normoactive bowel sounds GI Narrative: Negative Hernandez's, negative McBurney's, no pain left lower quadrant. No guarding or rebound. Palpation: Negative for guarding or rebound tenderness present Extremity normal to inspection General Extremety ED: Negative for edema or tenderness General Extremity: Negative for edema Neuro oriented x3 and no sensory deficits noted Sensorium / Orientation: awake and alert Skin no rashes or lesions noted and no wounds MDM MDM MDM Narrative Medical decision making narrative: Interventions / MDM: Differential diagnosis: Diarrhea, dehydration, C. difficile Diagnosis considered but do not suspect: Pancreatitis however lipase normal. My EKG interpretation: N/A Imaging independently reviewed and interpreted by myself: N/A External documents reviewed: N/A Test considered but not ordered:N/A ED course: Nontoxic, nonsurgical abdomen. Heart rate on arrival 106 with mild dry mucosal membranes. Had a picture of stools earlier soft brown stools however small pink tinge fluid also noted. Patient has been established hospice for the past year. I discussed with daughter inform hospitalist that patient is here and daughter wanted workup with blood work and C. difficile rule out. With blood in the stools I discussed CT scan however they declined that at this point. She will be given small bolus of fluids with dried close membranes and heart failure history. Of note reviewed her medications noting magnesium however daughter states she has not been given that due to the diarrhea. Re-evaluation: stable 1650: Lab studies white count 16.5. Potassium 3.1. Creatinine normal at 0.89 with BUN of 10. Lipase normal at 31. Patient unable to provide a stool sample. Oral potassium was given for replacement. Heart rate improved to 99. daughter did contact the hospice team who are aware of patient's evaluation. I discussed patient daughter C. difficile is in differential with her recent multiple antibiotic use. Daughter states she would not want antibiotics started at this time. She will use probiotics. She states she is able to secure appointment with her PCP tomorrow at 5 PM. They agree to try to obtain stool samples at home for which material sent home with patient. She will continue oral fluid for hydration. She will keep her outpatient follow-up. All questions were answered. Disposition discussed with patient/family/significant other: Patient and daughter Case discussed with consulting clinician: N/A This note was generated with Bench dictation software. It may contain incorrect words, spelling, and punctuation that were not noted in checking the note before signing. Lab Data Attestation: I reviewed the patient's lab results. Labs: Laboratory Results - last 24 hr 02/08/25 15:51 WBC 16.5 H RBC 3.96 L Hgb 12.0 Hct 35.5 L MCV 89.6 MCH 30.3 MCHC 33.8 RDW Std Deviation 41.4 RDW Coeff of Amador 12.7 Plt Count 434 MPV 8.7 Immature Gran % (Auto) 0.800 Neut % (Auto) 84.7 H Lymph % (Auto) 8.3 L Childress % (Auto) 5.7 Eos % (Auto) 0.2 Baso % (Auto) 0.3 Absolute Neuts (auto) 13.9 H Absolute Lymphs (auto) 1.37 Nucleated RBC % 0 Sodium 133 Potassium 3.1 L Chloride 96 L Carbon Dioxide 26.9 Anion Gap 11 BUN 10 Creatinine 0.89 Estim Creat Clear Calc 61.61 Est GFR (MDRD) Non-Af 66 BUN/Creatinine Ratio 10.7 Glucose 113 H Calcium 8.6 Total Bilirubin 0.61 AST 18 ALT 9 Alkaline Phosphatase 79 Total Protein 8.0 Albumin 3.5 Globulin 4.5 H Albumin/Globulin Ratio 0.8 L Lipase 31 Discharge Plan Triage Chief Complaint: Diarrhea ED Provider: Yuriy Sol Dx/Rx/DC Orders Clinical Impression: Diarrhea, Hypokalemia Instructions: ED Diarrhea, Unknown Cause, ED Hypokalemia Prescriptions: No Action magnesium oxide 400 MG tablet 400 mg PO DAILY Qty: 30 0RF Patient Comments: supplement furosemide [Lasix] 20 mg tablet 20 mg PO DAILY Santyl 250 unit/gram ointment topical Primary Care Provider: Ross Burns Referrals: Ross Burns DO [Primary Care Provider] - Keep Topher appointment Activity Restrictions/Additional Instructions: Your white count 16.5. Potassium 3.1. Creatinine 0.89 with GFR of 66. You are given 500 cc normal saline fluids. Continue oral fluids for hydration. You are unable to provide stool sample in the ED. Try to collect stools at home for outpatient testing with your doctor or hospice team. Keep your scheduled appointment with PCP tomorrow. Print Language: Irish Disposition Disposition: Home, Self Care
[2025-02-08 16:10] LABS: Absolute Lymphocyte Count 1.37 X10^3/uL (0.83-4.51); Absolute Neutrophil Count 13.9 X10^3/uL (2.0-7.7); Basophil# 0.05 X10^3/uL; Basophil% 0.3 % (0-1); Eosinophil# 0.04 X10^3/uL; Eosinophils% 0.2 % (0-5); Hematocrit 35.5 % (37-47); Lymphocyte # 1.37 X10^3/ul (0.83-4.51); Lymphocyte % 8.3 % (19-41); Mean Corp Hgb Conc 33.8 g/dL (32-36); Mean Corpuscular Hgb 30.3 pg (27.0-32.0); Mean Corpuscular Volume 89.6 fL (81-99); Mean Platelet Vol. 8.7 fl (6.2-12.0); Monocyte# 0.94 X10^3/uL; Monocyte% 5.7 % (0-10); NRBC Flagged by Analyzer 0 % (0-5); Neutrophil # 13.94 X10^3/uL (2.7-7.7); Neutrophil % 84.7 % (47-70); Platelet Count 434 K/mm3 (150-450); RBC Distribution Width CV 12.7 % (11.6-14.6); RBC Distribution Width SD 41.4 fl (35.1-43.9); Red Blood Count 3.96 M/mm3 (4.2-5.4); White Blood Count 16.5 K/mm3 (4.4-11.0)
[2025-02-08 16:22] LABS: ALB/GLOB Ratio 0.8 RATIO (0.9-2.4); AST(SGOT) 18 U/L (<=31); Alanine Aminotransfer ALT/SGPT 9 U/L (<=34); Albumin, Serum 3.5 g/dL (3.4-4.8); Alkaline Phosphatase 79 U/L (35-104); Anion Gap 11 (5-15); BUN 10 mg/dL (4-19); BUN/Creat Ratio 10.7 RATIO (10-20); Calcium,Total 8.6 mg/dL (7.6-11.0); Carbon Dioxide 26.9 mmol/L (21.0-32.0); Chloride 96 mmol/L (98-108); Creatinine, Serum 0.89 mg/dL (0.70-1.20); EST Glomerular Filtration Rate 66 (>60); Estimated Creatinine Clearance 61.61 ml/min (50-250); Globulin 4.5 g/dL (2.2-4.2); Glucose 113 mg/dL (70-99); Lipase 31 U/L (13-75); Potassium 3.1 mmol/L (3.3-5.1); Sodium Level 133 mmol/L (133-145); Total Bilirubin 0.61 mg/dL (0.00-1.30)
[2025-02-08] MEDS: Potassium Chloride Oral Soln 20 MEQ/15 ML UDC 40 MEQ PO (16:53)
[2025-02-08 16:54] VITALS: BP 142/62; PULSE 75; RESP 12; TEMP 36.8; O2SAT 100
== END 2025-02-08 17:01 | disposition home or self-care (01) ==
PROVIDERS: Emergency Provider Emergency Medicine; PCP Student in an Organized Health Care Education/Training Program; Visit Provider Emergency Medicine
DX: R19.7 Diarrhea, unspecified (principal); I50.9 Heart failure, unspecified; E87.6 Hypokalemia; F17.200 Nicotine dependence, unspecified, uncomplicated; Z79.899 Other long term (current) drug therapy
CPT/HCPCS: 80053; 83690; 85025; 99285; A4216